=== PATIENT | male | born 1955 ===

== ENCOUNTER 2019-02-07 07:30 | Outpatient (CLI) | payer OTHER ==
[~2019-02-07 07:30] MED LIST: BUDEO.25 IH; CELEBREX50 MG PO; CLARITIN10 M1 PO; LYRICA100 MG PO; LYRICA200 MG PO; PLAVIX75 MG PO; PNEU16DI2; SYNTHROID75 MCG PO
== END 2019-02-07 08:00 | disposition home or self-care (01) ==
LOC: LAB 07:30
DX: D64.89 Other specified anemias (principal); E88.89 Other specified metabolic disorders; D68.8 Other specified coagulation defects; N39.0 Urinary tract infection, site not specified; Z22.322 Carrier or suspected carrier of Methicillin resistant Staphylococcus aureus; I49.8 Other specified cardiac arrhythmias; Z76.89 Persons encountering health services in other specified circumstances

== ENCOUNTER 2019-02-15 06:15 | Day surgery (SDC) | payer OTHER ==
[~2019-02-15 06:15] MED LIST changes: +CELEBREX200MG PO; +FLOVENT; +TAMS0.4C PO
== END 2019-02-15 17:30 | disposition home or self-care (01) ==
LOC: CIR.AMB 06:15
DX: S93.02XA Subluxation of left ankle joint, initial encounter (principal); S96.812A Strain of other specified muscles and tendons at ankle and foot level, left foot, initial encounter; S93.05XA Dislocation of left ankle joint, initial encounter; M76.822 Posterior tibial tendinitis, left leg

== ENCOUNTER 2021-05-30 11:56 | Outpatient (CLI) | payer OTHER | END 2021-05-30 12:01 | disposition home or self-care (01) | LOC: RAD 11:56 | PROVIDERS: ATTEND Orthopaedic Surgery | DX: M25.552 Pain in left hip (principal) ==